=== PATIENT | female | born 1980 | race Caucasian/White ===

== ENCOUNTER 2019-05-05 17:23 | Emergency (ER) | payer OTHER ==
[2019-05-05 17:44] VITALS: BP 147/88; PULSE 73
[2019-05-05] MEDS ORDERED: Ketorolac 60 MG/2 ML SDV IM ONE (18:00)
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
== END 2019-05-05 19:11 | disposition home or self-care (01) ==
LOC: JP.ED 17:23
DX: S06.0X0A Concussion without loss of consciousness, initial encounter (principal); Y04.2XXA Assault by strike against or bumped into by another person, initial encounter; Y92.219 Unspecified school as the place of occurrence of the external cause
CPT/HCPCS: 96372; 99283; 99284; J1885

== ENCOUNTER 2019-11-29 17:25 | Emergency (ER) | payer BC ==
[2019-11-29 17:49] VITALS: BP 146/70; PULSE 89
--- NOTE | 2019-11-29 18:13 | EDM.PDOC ---
ED HPI GENERAL MEDICAL PROBLEM - General Chief Complaint: Upper Extremity Injury/Pain Stated Complaint: PAIN IN RT ARM Time Seen by Provider: 11/29/19 18:00 Source of Information: Reports: Patient, Old Records History Limitations: Reports: No Limitations - History of Present Illness INITIAL COMMENTS - FREE TEXT/NARRATIVE: 39 yo female here with induration of the R distal radial aspect of her forearm associated with pain when she uses her wrist. She denies injury. Has been raking yesterday and today. Tried icing once at home earlier today without benefit. Onset: Today Duration: Hour(s):, Constant Location: Reports: Upper Extremity, Right Quality: Reports: Ache Severity: Mild Improves with: Reports: Rest Worsens with: Reports: Movement Context: Reports: Other (see HPI) Associated Symptoms: Reports: No Other Symptoms. Denies: Fever/Chills, Rash Treatments [employer]PER[employer]OR: Reports: Cold Therapy Right Arm Pain Score (Numeric/FACES): 10 - Related Data Allergies Allergy/AdvReac Type Severity Reaction Status Date / Time No Known Allergies Allergy Verified 05/05/19 17:42 Home Meds: Home Meds Amphetamine/Dextroamphetamine [Adderall] 10 mg PO DAILY 05/05/19 [History] norgestimate-ethinyl estradioL [Estarylla 0.25-0.035 mg Tablet] 1 tab PO DAILY 05/05/19 [History] Past Medical History Psychiatric History: Reports: ADD Oncologic (Cancer) History: Reports: Pancreatic Social & Family History - Caffeine Use Caffeine Use: Reports: Soda Review of Systems - Review of Systems Review Of Systems: See Below Constitutional: Reports: No Symptoms Musculoskeletal: Reports: Arm Pain (R forearm) Skin: Reports: No Symptoms Neurological: Reports: Numbness (slight numbness distal to her indurated area) ED EXAM, GENERAL - Physical Exam Exam: See Below Exam Limited By: No Limitations General Appearance: Alert, WD/WN, No Apparent Distress Extremities: Normal Range of Motion, Other (mild tenderness with induration over the distal radial aspect of the R forearm. ). No: Non-Tender, Increased Warmth Neurological: Alert, Oriented, CN II-XII Intact, Normal Cognition, No Motor/Sensory Deficits Psychiatric: Normal Affect, Normal Mood Skin Exam: Warm, Dry, Intact, Normal Color, No Rash Course - Vital Signs Last Recorded V/S: Last Vital Signs Temp 36.7 C 11/29/19 18:03 Pulse 89 11/29/19 18:03 Resp 17 11/29/19 18:03 BP 146/70 H 11/29/19 18:03 Pulse Ox 98 11/29/19 18:03 Departure - Departure Time of Disposition: 18:15 Disposition: Home, Self-Care 01 Condition: Good Clinical Impression: Tenosynovitis of forearm - Discharge Information *PRESCRIPTION DRUG MONITORING PROGRAM REVIEWED*: No *COPY OF PRESCRIPTION DRUG MONITORING REPORT IN PATIENT NAMITA: No Instructions: Tenosynovitis Referrals: PCP,None [Primary Care Provider] - Additional Instructions: Ice as discussed several times daily. Ibuprofen or Aleve per package instructions. Wear the splint on your wrist for support. Rest the right hand/wrist. Recheck with your doctor later this next week if not improving. Sepsis Event Note (ED) - Evaluation Sepsis Screening Result: No Definite Risk - Focused Exam Vital Signs: Vital Signs Temp Pulse Resp BP Pulse Ox 11/29/19 18:03 36.7 C 89 17 146/70 H 98 11/29/19 17:47 36.7 C 89 17 146/70 H 98
== END 2019-11-29 18:29 | disposition home or self-care (01) ==
LOC: JP.ED 17:25
DX: M65.831 Other synovitis and tenosynovitis, right forearm (principal); Z79.899 Other long term (current) drug therapy
CPT/HCPCS: 99283